=== PATIENT | female | born 1940 | race Caucasian/White ===

== ENCOUNTER 2023-06-23 15:06 | Inpatient (IN) | payer MEDICARE, OTHER ==
[2023-06-23 17:13] LABS: Basophils % (A) 0 %; Eosinophils % (A) 0 %; HCT 34.9 % (34.0-46.0); HGB 11.3 gm/dL (11.4-16.0); Lymphocytes % (A) 26 %; MCH 30.9 pg (25.0-35.0); MCHC 32.4 g/dL (31.0-37.0); MCV 95.5 fL (80.0-100.0); Mean Platelet Volume 9.1; Monocytes # (A) 0.3 k/uL (0-1.0); Monocytes % (A) 8 %; Neutrophils # (A) 2.5 k/uL (1.3-7.7); Neutrophils % (A) 64 %; Platelet Count 144 k/uL (150-450); RBC 3.66 m/uL (3.80-5.40); RDW 15.6 % (11.5-15.5); WBC 3.9 k/uL (3.8-10.6)
[2023-06-23 17:23] LABS: ALT 15 U/L (4-34); AST 29 U/L (14-36); African American GFR (CKD) 62 (>60 ml/min/1.73 sqM); Albumin 3.4 g/dL (3.5-5.0); Alkaline Phosphatase 63 U/L (38-126); Anion Gap 10 mmol/L; Blood Urea Nitrogen 34 mg/dL (7-17); Calcium 8.3 mg/dL (8.4-10.2); Carbon Dioxide 24 mmol/L (22-30); Chloride 107 mmol/L (98-107); Glucose 76 mg/dL (74-99); Magnesium 1.9 mg/dL (1.6-2.3); Non-African American GFR(CKD) 54 (>60 ml/min/1.73 sqM); Potassium 3.9 mmol/L (3.5-5.1); Sodium 141 mmol/L (137-145); Total Bilirubin 0.5 mg/dL (0.2-1.3); Total Protein 6.3 g/dL (6.3-8.2)
[2023-06-23 17:32] LABS: NT-Pro-B-Type Natriuretic Pept 2500 pg/mL
--- NOTE | 2023-06-23 17:52 | ED ---
General Adult HPI - General Chief complaint: Shortness of Breath Stated complaint: Covid positive Time Seen by Provider: 06/23/23 15:40 Source: patient, EMS, RN notes reviewed, old records reviewed Mode of arrival: EMS Limitations: no limitations - History of Present Illness Initial comments: This is an 82-year-old female who was sent to us from [facility] with the diagnosis of COVID and congestive heart failure. Patient states she went into the hospital because she was feeling weak and a little short of breath. According to the ER doctor at the other facility she did test positive for COVID and he believes that she was having a little bit of heart failure as well. Patient denied any chest pain or difficulty breathing patient denied any abdominal pain though she has a history of pancreatitis. Patient denies any nausea vomiting or diarrhea. Patient states she used to feel little short of breath today but now she feels much better. Patient did receive Lasix 20 mg at the other facility. Patient denies any lightheadedness or dizziness. Patient denies headache patient denies numbness or weakness. - Related Data Allergies Allergy/AdvReac Type Severity Reaction Status Date / Time Penicillins Allergy Unknown Verified 06/23/23 15:48 Review of Systems ROS Statement: Those systems with pertinent positive or pertinent negative responses have been documented in the HPI. ROS Other: All systems not noted in ROS Statement are negative. Past Medical History Past Medical History: Atrial Fibrillation, Heart Failure, CVA/TIA, Diabetes Mellitus, Hypertension, Osteoarthritis (OA) Additional Past Medical History / Comment(s): anemia, hyproxia, pancreatitis, low electrolytes, restrictive lung disease History of Any Multi-Drug Resistant Organisms: None Reported Past Surgical History: Appendectomy, Orthopedic Surgery, Pacemaker Past Psychological History: Depression Smoking Status: Never smoker Past Alcohol Use History: None Reported Past Drug Use History: None Reported General Exam - General Exam Comments Initial Comments: GENERAL: Patient is well-developed and well-nourished. Patient is nontoxic and well- hydrated and is in mild distress. ENT: Neck is soft and supple. No significant lymphadenopathy is noted. Oropharynx is clear. Moist mucous membranes. Neck has full range of motion without eliciting any pain. EYES: The sclera were anicteric and conjunctiva were pink and moist. Extraocular movements were intact and pupils were equal round and reactive to light. Eyelids were unremarkable. PULMONARY: Unlabored respirations. Good breath sounds bilaterally. No audible rales rhonchi or wheezing was noted. CARDIOVASCULAR: There is a regular rate and rhythm without any murmurs gallops or rubs. ABDOMEN: Soft and nontender with normal bowel sounds. SKIN: Skin is clear with no lesions or rashes and otherwise unremarkable. NEUROLOGIC: Patient is alert and oriented 2. Cranial nerves II through XII are grossly intact. Motor and sensory are also intact. Normal speech, volume and content. Symmetrical smile. MUSCULOSKELETAL: Normal extremities with adequate strength and full range of motion. LYMPHATICS: No significant lymphadenopathy is noted PSYCHIATRIC: Normal psychiatric evaluation. Limitations: no limitations Course Vital Signs 06/23/23 06/23/23 06/23/23 15:34 15:56 16:39 Temperature 99.4 F 99.3 F Pulse Rate 82 77 84 Respiratory 24 24 22 Rate Blood Pressure 104/70 96/65 O2 Sat by Pulse 97 96 98 Oximetry 06/23/23 19:02 Temperature 98.7 F Pulse Rate 72 Respiratory 16 Rate Blood Pressure 108/67 O2 Sat by Pulse 97 Oximetry Medical Decision Making - Medical Decision Making EKG was interpreted by myself. EKG shows electronically paced rhythm at 69 bpm QRS is 162 QT interval is 444 QTC is 464 patient's EKG shows no ST segment elevation or depression. Was pt. sent in by a medical professional or institution ([facility], FOUNDRY SUPERINTENDANT, urgent care, hospital, or care home...) When possible be specific @ -Patient was sent in from another hospital. Did you speak to anyone other than the patient for history (EMS, parent, family, police, friend...)? What history was obtained from this source @ -I spoke with the caregiver that sent the patient in and I got all of the previous history of today's events Did you review nursing and triage notes (agree or disagree)? Why? @ -I reviewed and agree with nursing and triage notes Were old charts reviewed (outside hosp., previous admission, EMS record, old EKG, old radiological studies, urgent care reports/EKG's, care home records)? Report findings @ -I reviewed prior lab work in prior charts they came with the patient Differential Diagnosis (chest pain, altered mental status, abdominal pain women, abdominal pain men, vaginal bleeding, weakness, fever, dyspnea, syncope, headache, dizziness, GI bleed, back pain, seizure, CVA, palpatations, mental health, musculoskeletal)? @ -Differential Dyspnea: Coronary syndrome, arrhythmia, tamponade, asthma, COPD, pulmonary embolism, pneumonia, pneumothorax, pulmonary effusion, anaphylaxis, diabetic ketoacidosis, flailed chest, pulmonary contusion, diaphragmatic rupture, anemia, neuromuscular, this is not meant to be an all-inclusive list. EKG interpreted by me (3pts min.). @ -As above X-rays interpreted by me (1pt min.). @ -None done CT interpreted by me (1pt min.). @ -None done U/S interpreted by me (1pt. min.). @ -None done What testing was considered but not performed or refused? (CT, X-rays, U/S, labs)? Why? @ -None What meds were considered but not given or refused? Why? @ -None Did you discuss the management of the patient with other professionals (professionals i.e. , PA, FOUNDRY SUPERINTENDANT, lab, RT, psych nurse, social insurance adviser, divorce lawyer, teacher, forest fire management officer, medical case manager)? Give summary @ -Smoke with sound physician's agreed to admit the patient admitted the patient Was smoking cessation discussed for >3mins.? @ -No Was critical care preformed (if so, how long)? @ -No Were there social determinants of health that impacted care today? How? (Homelessness, low income, unemployed, alcoholism, drug addiction, transportation, low edu. Level, literacy, decrease access to med. care, [place] [facility], rehab)? @ -No Was there de-escalation of care discussed even if they declined (Discuss DNR or withdrawal of care, Hospice)? DNR status @ -No What co-morbidities impacted this encounter? (DM, HTN, Smoking, COPD, CAD, Cancer, CVA, ARF, Chemo, Hep., AIDS, mental health diagnosis, sleep apnea, morbid obesity)? @ -None Was patient admitted / discharged? Hospital course, mention meds given and route, prescriptions, significant lab abnormalities, going to OR and other pertinent info. @ -Patient was COVID positive troponin was mildly elevated I reviewed the old chest x-ray showed no acute abnormality Undiagnosed new problem with uncertain prognosis? @ -No Drug Therapy requiring intensive monitoring for toxicity (Heparin, Nitro, Insulin, Cardizem)? @ -No Were any procedures done? @ -No Diagnosis/symptom? @ -COVID-19 Acute, or Chronic, or Acute on Chronic? @ -Acute Uncomplicated (without systemic symptoms) or Complicated (systemic symptoms)? @ -Complicated Side effects of treatment? @ -No Exacerbation, Progression, or Severe Exacerbation? @ -No Poses a threat to life or bodily function? How? (Chest pain, USA, MD, pneumonia, PE, COPD, DKA, ARF, appy, cholecystitis, CVA, Diverticulitis, Homicidal, Cora cidal, threat to staff... and all critical care pts) @ -No Diagnosis/symptom? @ -Mild pulmonary edema Acute, or Chronic, or Acute on Chronic? @ -Acute Uncomplicated (without systemic symptoms) or Complicated (systemic symptoms)? @ -Complicated Side effects of treatment? @ -none Exacerbation, Progression, or Severe Exacerbation] @ -no Poses a threat to life or bodily function? @ -no - Lab Data Result diagrams: 06/23/23 16:40 06/23/23 16:40 Lab Results 06/23/23 06/23/23 06/23/23 Range/Units 16:40 16:40 16:40 WBC 3.9 (3.8-10.6) k/uL RBC 3.66 L (3.80-5.40) m/uL Hgb 11.3 L (11.4-16.0) gm/dL Hct 34.9 (34.0-46.0) % MCV 95.5 (80.0-100.0) fL MCH 30.9 (25.0-35.0) pg MCHC 32.4 (31.0-37.0) g/dL RDW 15.6 H (11.5-15.5) % Plt Count 144 L (150-450) k/uL MPV 9.1 Neutrophils % 64 % Lymphocytes % 26 % Monocytes % 8 % Eosinophils % 0 % Basophils % 0 % Neutrophils # 2.5 (1.3-7.7) k/uL Lymphocytes # 1.0 (1.0-4.8) k/uL Monocytes # 0.3 (0-1.0) k/uL Eosinophils # 0.0 (0-0.7) k/uL Basophils # 0.0 (0-0.2) k/uL Sodium 141 (137-145) mmol/L Potassium 3.9 (3.5-5.1) mmol/L Chloride 107 (98-107) mmol/L Carbon Dioxide 24 (22-30) mmol/L Anion Gap 10 mmol/L BUN 34 H (7-17) mg/dL Creatinine 0.98 (0.52-1.04) mg/dL Est GFR (CKD-EPI)AfAm 62 (>60 ml/min/1.73 sqM) Est GFR (CKD-EPI)NonAf 54 (>60 ml/min/1.73 sqM) Glucose 76 (74-99) mg/dL Calcium 8.3 L (8.4-10.2) mg/dL Magnesium 1.9 (1.6-2.3) mg/dL Total Bilirubin 0.5 (0.2-1.3) mg/dL AST 29 (14-36) U/L ALT 15 (4-34) U/L Alkaline Phosphatase 63 (38-126) U/L Troponin I 0.049 H* (0.000-0.034) ng/mL NT-Pro-B Natriuret Pep 2500 pg/mL Total Protein 6.3 (6.3-8.2) g/dL Albumin 3.4 L (3.5-5.0) g/dL Disposition Clinical Impression: Acute pulmonary edema, COVID, Elevated troponin Disposition: ADMITTED IP TO THIS HOSP Referrals: Nonstaff,Physician [Primary Care Provider] - 1-2 days Time of Disposition: 19:42
[2023-06-23] MEDS ORDERED: SODIUM CHLORIDE 0.9% 1,000 ML IV ONE (19:43)
[2023-06-23] MEDS ORDERED: FUROSEMIDE 10 MG/ML 2 ML VIAL IV SCH (21:00)
[2023-06-23 22:19] LABS: Glucose,Whole Blood 71 mg/dL (70-110)
[2023-06-23] MEDS ORDERED: ATORVASTATIN 20 MG TAB PO SCH (23:45)
[2023-06-23] MEDS ORDERED: DONEPEZIL 5 MG TAB PO SCH (23:45)
[2023-06-23] MEDS ORDERED: ALBUTEROL NEBULIZED 2.5 MG/3 ML INHALATION PRN (23:48)
[2023-06-23] MEDS ORDERED: NALOXONE 0.4 MG/ML 1 ML VIAL IV PRN (23:51)
[2023-06-23] MEDS ORDERED: IBUPROFEN 400 MG TAB PO PRN (23:52)
[2023-06-23] MEDS ORDERED: ACETAMINOPHEN TAB 325 MG TAB PO PRN (23:52)
[2023-06-23] MEDS ORDERED: ONDANSETRON 4 MG/2 ML VIAL IVP PRN (23:52)
[2023-06-23] MEDS ORDERED: ALPRAZolam 0.25 MG TAB PO PRN (23:52)
[2023-06-23] MEDS ORDERED: MELATONIN 3 MG TABLET PO PRN (23:52)
[2023-06-23] MEDS ORDERED: DEXTROSE 50% SYRINGE 50 ML IVP PRN ×2 (23:55)
--- NOTE | 2023-06-24 00:02 | P.HPIM ---
History of Present Illness H&P Date: 06/23/23 Chief Complaint: weakness 82-year-old female with diabetes mellitus, A. fib status post pacemaker Patient is a transfer from [facility] where she was seen for g eneralized weakness. There workup revealed positive Covid, borderline low normal blood pressure was likely elevated troponins and elevated proBNP they had concerns regarding Covid impossible mild acute congestive heart failure for which they decided to transfer her to our facility. Patient herself has no complaints she reports some generalized weakness she lives alone she felt easy fatigability and tired and was taken to the hospital for evaluation she denies any fevers denies any chills denies any nausea or vomiting denies any sore throat denies any runny nose denies any cough denies any shortness of breath she denies any abdominal pain denies any leg edema denies any changes in her urinary or bowel habits. She denies any recent travel or known sick contacts. She reports some generalized weakness but denies any falls or head injuries. Workup at the other facility showed Covid test positive, chest x-ray no acute pathology. Patient was given Lasix at the other facility and transferred to our hospital for higher level of care Patient denies any tobacco smoking or illicit drugs or alcohol review of systems Pertinent positives as noted in HPI. All other systems were reviewed and are negative on exam Constitutional: No acute distress, conversant, pleasant Eyes: Anicteric sclerae, moist conjunctiva, Pupils equal round reactive to light ENMT: NC/AT Oropharynx clear, no erythema, or exudates Neck: Supple, no masses, or JVD No carotid bruits No thyromegaly Lungs: Clear to auscultation Clear to percussion Normal respiratory effort, no accessory muscle use Cardiovascular: Heart regular in rate and rhythm, No murmurs, gallops, or rubs No peripheral edema Abdominal: Soft Nontender, no guarding, rebound or rigidity Abdomen moving with respiration Normoactive bowel sounds No hepatomegaly, No splenomegaly No palpable mass No abdominal wall hernia noted Extremities: No digital cyanosis No clubbing Pedal pulses intact and symmetrical Radial pulses intact and symmetrical No calf tenderness Psychiatric: Alert and oriented to person, place and time Appropriate affect Neuro Muscles Strength 5/5 in all 4 extremities Sensation to light touch grossly present throughout Cranial nerves II-XII grossly intact Lymphatics: no palpable cervical or supraclavicular lymph nodes Past Medical History Past Medical History: Atrial Fibrillation, Heart Failure, CVA/TIA, Diabetes Mellitus, Hypertension, Osteoarthritis (OA) Additional Past Medical History / Comment(s): anemia, hyproxia, pancreatitis, low electrolytes, restrictive lung disease History of Any Multi-Drug Resistant Organisms: None Reported Past Surgical History: Appendectomy, Orthopedic Surgery, Pacemaker Past Psychological History: Depression Smoking Status: Never smoker Past Alcohol Use History: None Reported Past Drug Use History: None Reported Medications and Allergies Home Medications Medication Instructions Recorded Confirmed Type Albuterol Inhaler [Ventolin Hfa 1 - 2 puff INHALATION RT-Q6H PRN 06/23/23 06/23/23 History Inhaler] Apixaban [Eliquis] 5 mg PO BID 06/23/23 06/23/23 History Atorvastatin [Lipitor] 20 mg PO HS 06/23/23 06/23/23 History Budesonide/Formoterol Fumarate 2 puff INHALATION RT-BID 06/23/23 06/23/23 History [Symbicort 80-4.5 Mcg Inhaler] Donepezil [Aricept] 5 mg PO HS 06/23/23 06/23/23 History Famotidine [Pepcid] 20 mg PO BID 06/23/23 06/23/23 History Furosemide [Lasix] 40 mg PO DAILY 06/23/23 06/23/23 History Meclizine HCl 12.5 mg PO TID PRN 06/23/23 06/23/23 History Meloxicam [Mobic] 7.5 mg PO W/BRKFST 06/23/23 06/23/23 History Metoprolol Tartrate [Lopressor] 37.5 mg PO BID 06/23/23 06/23/23 History Mv-Mn/Om3/Dha/Epa/Fish/Lut/Lefty 1 cap PO DAILY 06/23/23 06/23/23 History [Ocuvite Adult 50 Plus Softgel] Potassium Chloride ER [K-Dur 20] 20 meq PO DAILY 06/23/23 06/23/23 History lisinopriL [Zestril] 5 mg PO DAILY 06/23/23 06/23/23 History metFORMIN HCL [Glucophage] 500 mg PO BID 06/23/23 06/23/23 History Allergies Allergy/AdvReac Type Severity Reaction Status Date / Time Penicillins Allergy VERTIGO Verified 06/23/23 20:36 Physical Exam Vitals: Vital Signs Temp Pulse Pulse Resp BP BP Pulse Ox 06/23/23 21:23 98.1 F 77 16 99/59 98 06/23/23 19:47 93 22 108/70 98 06/23/23 19:02 98.7 F 72 16 108/67 97 06/23/23 16:39 99.3 F 84 22 96/65 98 06/23/23 15:56 77 24 96 06/23/23 15:34 99.4 F 82 24 104/70 97 Intake and Output 06/23/23 06/23/23 06/24/23 14:59 22:59 06:59 Intake Total 85 Output Total 0 Balance 85 Intake: IV 85 Invasive Line 1 10 Sodium Chloride 0.9% 1, 75 000 ml @ 75 mls/hr IV . [id number] Rx#:[id number] Output: Urine 0 Stool 0 Other: # Voids 0 # Bowel Movements 0 Weight 52.5 kg Results CBC & Chem 7: 06/23/23 16:40 06/23/23 16:40 Labs: Abnormal Lab Results - Last 24 Hours (Table) 06/23/23 06/23/23 06/23/23 Range/Units 16:40 16:40 16:40 RBC 3.66 L (3.80-5.40) m/uL Hgb 11.3 L (11.4-16.0) gm/dL RDW 15.6 H (11.5-15.5) % Plt Count 144 L (150-450) k/uL BUN 34 H (7-17) mg/dL Calcium 8.3 L (8.4-10.2) mg/dL Troponin I 0.049 H* (0.000-0.034) ng/mL Albumin 3.4 L (3.5-5.0) g/dL Assessment and Plan Assessment: 82-year-old female with diabetes mellitus this, A. fib status post pacemaker was transferred to our facility for Covid positive test and mild CHF I discussed the case with the ED doctor and accepted the admission for positive Covid with generalized weakness for close observation overnight with anticipated length of stay less than 48 hours Covid positive Generalized weakness Supplemental oxygen as needed, currently on room air oxygen saturation ranging 98-99% Chest x-ray no acute pathology Contact and droplet precautions Continue supportive care Continue with albuterol when necessary for shortness of breath Continue with Symbicort twice a day home inhaler Mild dehydration BUN 34 creatinine 0.9 Discontinue Lasix Gentle IV fluid hydration normal saline 75 mL per hour Most recent left ventricular ejection fraction done on October 2022 showing left ventricular ejection fraction 5560 percent A. fib status post pacemaker EKG showing paced rhythm Continue with Eliquis and metoprolol Diabetes mellitus Insulin sliding scale Hypertension currently blood pressure low normal Continue with lisinopril and metoprolol Generalized weakness, fall precautions PT consultation Full code DVT prophylaxis on Eliquis for A. fib GI prophylaxis continue with famotidine
[2023-06-24] MEDS: METOPROLOL TARTRATE 12.5 MG TAB PO SCH ×2 (00:09→08:30)
[2023-06-24] MEDS: APIXABAN 5 MG TAB PO SCH ×2 (00:09→08:31)
[2023-06-24] MEDS: FAMOTIDINE 20 MG TAB PO SCH ×2 (00:10→08:31)
[2023-06-24] MEDS: SYMBICORT 80-4.5 MCG INHALER INHALATION SCH ×3 (04:27→13:05)
[2023-06-24 06:13] LABS: Glucose,Whole Blood 73 mg/dL (70-110)
[2023-06-24] MEDS: INSULIN ASPART (NovoLOG) 100 UNIT/ML VIAL SQ SCH ×3 (07:23→16:31)
[2023-06-24] MEDS ORDERED: ALBUTEROL HFA INHALER INHALATION PRN (08:15)
[2023-06-24 08:33] VITALS: RESP 18
[2023-06-24] MEDS ORDERED: lisinopriL 5 MG TAB PO SCH (09:00)
[2023-06-24 11:17] LABS: Basophils % (A) 0 %; Eosinophils % (A) 1 %; HCT 37.7 % (34.0-46.0); HGB 11.7 gm/dL (11.4-16.0); Hypochromasia Slight; Lymphocytes # (A) 1.3 k/uL (1.0-4.8); Lymphocytes % (A) 28 %; MCH 30.2 pg (25.0-35.0); MCV 97.2 fL (80.0-100.0); Mean Platelet Volume 9.5; Monocytes # (A) 0.2 k/uL (0-1.0); Monocytes % (A) 5 %; Neutrophils % (A) 65 %; Platelet Count 137 k/uL (150-450); RBC 3.88 m/uL (3.80-5.40); RDW 15.7 % (11.5-15.5); WBC 4.7 k/uL (3.8-10.6)
[2023-06-24 11:39] LABS: African American GFR (CKD) 80 (>60 ml/min/1.73 sqM); Anion Gap 11 mmol/L; Blood Urea Nitrogen 31 mg/dL (7-17); Calcium 8.4 mg/dL (8.4-10.2); Carbon Dioxide 21 mmol/L (22-30); Chloride 109 mmol/L (98-107); Glucose 90 mg/dL (74-99); Non-African American GFR(CKD) 69 (>60 ml/min/1.73 sqM); Potassium 3.9 mmol/L (3.5-5.1); Sodium 141 mmol/L (137-145)
[2023-06-24 11:52] LABS: Glucose,Whole Blood 94 mg/dL (70-110)
[2023-06-24 12:49] VITALS: BP 98/66; TEMP 98.4
[2023-06-24] MEDS ORDERED: LOPERAMIDE 2 MG CAP PO PRN (13:04)
--- NOTE | 2023-06-24 13:19 | P.DS ---
Providers Date of admission: 06/23/23 19:43 Expected date of discharge: 06/24/23 Attending physician: Tony Holt MD Primary care physician: Physician Nonstaff Hospital Course: Discharge Diagnosis: COVID-19 viral syndrome Diarrhea Generalized weakness Elevated troponin Mild dehydration Prerenal azotemia Atrial fibrillation status post pacemaker, on anticoagulation Type 2 diabetes Hypertension Hospital Course: 82-year-old female with history of atrial fibrillation status post his maker, preserved heart failure, type 2 diabetes presenting from outside facility for COVID-19 syndrome, generalized weakness, and elevated troponin. Chest x-ray do not show any acute pathology, small left pleural effusion. EKG shows ventricularly paced rhythm. Laboratory workup remarkable for prerenal azotemia, troponin of 0.049, proBNP 2500. Besides generalized weakness and diarrhea, patient denies any other complaints secondary to COVID-19 infection. She has no respiratory complaints at the moment. Prerenal azotemia and renal function improved with gentle IV fluids. Lasix was discontinued. Patient to be discharged home with close follow-up with PCP to possibly restart her Lasix. Patient has also not been on any recent antibiotics or has been hospitalized to warrant any further testing with regards to diarrhea. Suspected diarrhea likely secondary to COVID-19 infection. Elevated troponin likely also in the setting of COVID-19 infection, denies any active chest pain. Patient seen and examined at bedside. Vital signs reviewed and stable. General: nontoxic, no distress, appears at stated age Derm: warm, dry Head: atraumatic, normocephalic, symmetric Eyes: EOMI, no lid lag, anicteric sclera Mouth: no lip lesion, mucus membranes moist Cardiovascular: S1S2 reg, no murmur Lungs: CTA bilateral, no rhonchi, no rales , no accessory muscle use Abdominal: soft, nontender to palpation, no guarding, no appreciable organomegaly Ext: no gross muscle atrophy, no edema, no contractures Neuro: CN II-XI grossly intact, no focal neuro deficits Psych: Alert, oriented, appropriate affect A total of 33 minutes of time were spent preparing this complex discharge summary. Patient was discharged on 06/24/23 at 13:04. Plan - Discharge Summary Discharge Rx Participant: No New Discharge Prescriptions: New Acetaminophen Tab [Tylenol] 650 mg PO Q6HR PRN #30 tab PRN Reason: Mild Pain Or Fever > 100.5 Loperamide [Imodium] 2 mg PO QID PRN #20 cap PRN Reason: Diarrhea Continue Albuterol Inhaler [Ventolin Hfa Inhaler] 1 - 2 puff INHALATION RT-Q6H PRN PRN Reason: Shortness Of Breath Apixaban [Eliquis] 5 mg PO BID Budesonide/Formoterol Fumarate [Symbicort 80-4.5 Mcg Inhaler] 2 puff IN HALATION RT-BID Famotidine [Pepcid] 20 mg PO BID lisinopriL [Zestril] 5 mg PO DAILY metFORMIN HCL [Glucophage] 500 mg PO BID Atorvastatin [Lipitor] 20 mg PO HS Donepezil [Aricept] 5 mg PO HS Meclizine HCl 12.5 mg PO TID PRN PRN Reason: Vertigo Metoprolol Tartrate [Lopressor] 37.5 mg PO BID Mv-Mn/Om3/Dha/Epa/Fish/Lut/Lefty [Ocuvite Adult 50 Plus Softgel] 1 cap PO DAILY Discontinued Furosemide [Lasix] 40 mg PO DAILY Meloxicam [Mobic] 7.5 mg PO W/BRKFST Potassium Chloride ER [K-Dur 20] 20 meq PO DAILY Discharge Medication List Albuterol Inhaler [Ventolin Hfa Inhaler] 1 - 2 puff INHALATION RT-Q6H PRN 06/23/23 [History] Apixaban [Eliquis] 5 mg PO BID 06/23/23 [History] Atorvastatin [Lipitor] 20 mg PO HS 06/23/23 [History] Budesonide/Formoterol Fumarate [Symbicort 80-4.5 Mcg Inhaler] 2 puff INHALATION RT-BID 06/23/23 [History] Donepezil [Aricept] 5 mg PO HS 06/23/23 [History] Famotidine [Pepcid] 20 mg PO BID 06/23/23 [History] Meclizine HCl 12.5 mg PO TID PRN 06/23/23 [History] Metoprolol Tartrate [Lopressor] 37.5 mg PO BID 06/23/23 [History] Mv-Mn/Om3/Dha/Epa/Fish/Lut/Lefty [Ocuvite Adult 50 Plus Softgel] 1 cap PO DAILY 06/23/23 [History] lisinopriL [Zestril] 5 mg PO DAILY 06/23/23 [History] metFORMIN HCL [Glucophage] 500 mg PO BID 06/23/23 [History] Acetaminophen Tab [Tylenol] 650 mg PO Q6HR PRN #30 tab 06/24/23 [Rx] Loperamide [Imodium] 2 mg PO QID PRN #20 cap 06/24/23 [Rx] Follow up Appointment(s)/Referral(s): Nonstaff,Physician [Primary Care Provider] - 1-2 days Patient Instructions/Handouts: COVID-19 (Coronavirus Disease 2019) (DC), COVID- 19 and Chronic Health Conditions (DC) Activity/Diet/Wound Care/Special Instructions: Hold off taking lasix for now, stay hydrated while recovering from COVID. Please see your PCP so that they can restart lasix if necessary. Discharge Disposition: HOME SELF-CARE
[2023-06-24 16:27] LABS: Glucose,Whole Blood 102 mg/dL (70-110)
[2023-06-24 16:31] VITALS: PULSE 87
--- NOTE | 2023-06-26 21:05 | CDI ---
Documentation Clarification Form Date: 06/26/2023 08:55:20 PM From: Candice Norton Phone: Admit Date: 06/23/2023 07:43:00 PM Patient Name: Tali Thibodeaux Visit Number: [id number] Discharge Date: 06/24/2023 07:11:00 PM ATTENTION: The Clinical Documentation Specialists (CDI) and [employer] Coding Staff appreciate your assistance in clarifying documentation. Please respond to the clarification below the line at the bottom and electronically sign. The CDI & [employer] Coding staff will review the response and follow-up if needed. Please note: Queries are made part of the Legal Health Record. If you have any questions, please contact the author of this message via ITS. Dr. Tony Holt Your patient has the documented diagnosis of unspecified CHF ED Note 06/23. Additional information regarding the type and acuity of CHF is requested. History/Risk Factors: 82yo F, COVID, elevated troponin, dehydration, prerenalazotemia, A Fib w PPM, NIDDMII, HTN Clinical Indicators: VS/Pulse OX: 97 BNP: 2500 Chest x ray: do not show any acute pathology, small left pleural effusion. Treatment: Patient was given Lasix at the other facility and transferred to our hospital for higher level of care. In your professional opinion, can you please clarify the type and acuity of CHF if known? [ ] Acute Systolic Heart Failure (reduced EF) [ ] Chronic Systolic Heart Failure (reduced EF) [ ] Acute on Chronic Systolic Heart Failure (reduced EF) [ ] Acute Diastolic Heart Failure (preserved EF) [ ] Chronic Diastolic Heart Failure (preserved EF) [ ] Acute on Chronic Diastolic Heart Failure (preserved EF) [ ] Acute Systolic & Diastolic Heart Failure [ ] Chronic Systolic & Diastolic Heart Failure [ ] Acute on Chronic Heart Failure Systolic & Diastolic Heart Failure [ ] Other, please specify [ x ] Unable to determine (Template Last Revised: November 2020) MTDD
== END 2023-06-24 19:11 | disposition home or self-care (01) | DRG 177 ==
LOC: EC 15:06 → 3SCARD 19:43
PROVIDERS: ADMIT Student in an Organized Health Care Education/Training Program; ATTEND Student in an Organized Health Care Education/Training Program
PROC: 8E0ZXY6 Isolation (ICD-10-PCS; principal; 2023-06-23)
DX: U07.1 COVID-19 (principal); J81.0 Acute pulmonary edema; I11.0 Hypertensive heart disease with heart failure; I50.9 Heart failure, unspecified; E11.9 Type 2 diabetes mellitus without complications; I48.91 Unspecified atrial fibrillation; R77.8 Other specified abnormalities of plasma proteins; R79.89 Other specified abnormal findings of blood chemistry; E86.0 Dehydration; J98.4 Other disorders of lung; Z88.0 Allergy status to penicillin; Z95.0 Presence of cardiac pacemaker; Z86.73 Personal history of transient ischemic attack (TIA), and cerebral infarction without residual deficits; Z79.01 Long term (current) use of anticoagulants; Z79.51 Long term (current) use of inhaled steroids; Z79.899 Other long term (current) drug therapy; Z79.84 Long term (current) use of oral hypoglycemic drugs
CPT/HCPCS: 36415; 80048; 80053; 83036; 83735; 83880; 84484; 85025; 93005; 94640; 99285